=== PATIENT | female | born 1930 | race Caucasian/White ===

== ENCOUNTER 2018-02-06 10:48 | Day surgery (SDC) | payer MEDICARE ==
[~2018-02-06] VITALS: Ht 157.5 cm; Wt 63.5 kg
--- NOTE | ~2018-02-06 | OP ---
PATIENT NAME: GARY CABRERA MEDICAL RECORD: [id number] :32 LOCATION:D.END ADMISSION DATE: SURGEON: JIMY OKEEFE DO DATE OF OPERATION: 02/06/2018 PROCEDURE: EGD with biopsies. INDICATION FOR PROCEDURE: Anemia, dysphagia, heartburn. SCOPE: Olympus video gastroscope. MEDICATIONS: Propofol 40 mg IV per anesthesia. ESTIMATED BLOOD LOSS: Minimal. COMPLICATIONS: None. FINDINGS: Informed consent was given. The patient was made comfortable with the above medication. After reaching an adequate level of sedation by slow IV push, the patient was placed on her left side. The endoscope was advanced under direct visualization through the mouth to the second portion of the duodenum without ease. The upper, middle, and lower thirds of the esophagus appeared normal without strictures or other lesions. At the GE junction, there was evidence of moderate LA class C reflux-induced esophagitis and possible Montes's mucosa. A cold forceps biopsy was taken to confirm or disprove this. There was a single esophageal ulcer located within the esophagitis. It was superficial and not bleeding. The endoscope was advanced beyond the GE junction into the stomach and retroflexed to view the cardia, where a small- to medium-size sliding hiatal hernia was present. In the stomach, there were multiple small, superficial gastric ulcers without bleeding stigmata. There was also diffuse appearance of atrophic gastritis. Random biopsies were taken with cold forceps to submit for histopathology. The endoscope was advanced beyond the pylorus into the duodenum. The entire examined duodenum appeared normal. The endoscope was then withdrawn from the patient. The patient tolerated the procedure well and there were no complications. IMPRESSION: 1. 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 Biopsies were taken. 2. A single esophageal ulcer without bleeding stigmata located at the GE junction. 3. Small- to medium-size sliding hiatal hernia. 4. Multiple superficial gastric ulcers without bleeding stigmata. 5. Atrophic gastritis by appearance. Biopsies pending. PLAN AND RECOMMENDATIONS: 1. Discharge home when recovery parameters are met. 2. Followup biopsy specimen results. 3. Continue current medications. 4. Protonix 40 mg daily times 60 days or equivalent PPI therapy. 5. Hold off on colonoscopy at this point. I feel that a colonoscopy is risky regarding her age and sedation if not necessary. I have reviewed her labs today and she is actually within the normal range on her hemoglobin. Her MCV is upper limits of normal, which would not be consistent with a chronic GI blood loss anemia. I will also order some iron studies and would like to see a Hemoccult OPERATIVE REPORT [id number] GARY CABRERA of her stool prior to proceeding with colonoscopy if necessary. 6. At this time, we will treat with PPI for 60 days and followup on labs and biopsies. TRANSINT:[id number] Voice Confirmation ID: [id number] DOCUMENT ID: [id number] JIMY OKEEFE DO at 1524 CC: [id number] DICTATION DATE: 02/06/18 1322 FIRE SUPPRESSION CAPTAIN: 02/06/18 1414 [facility] 02/06/18 [id number] [place] [address]
[2018-02-06] MEDS ORDERED: COREG6.25 MG (12:01)
[2018-02-06] MEDS ORDERED: FUROSEMIDE20 MG PO (12:02)
[2018-02-06] MEDS ORDERED: LOTENSIN20 MG PO (12:02)
[2018-02-06] MEDS ORDERED: NORVASC10 MG PO (12:03)
[2018-02-06] MEDS ORDERED: LIPITOR10 MG PO (12:04)
[2018-02-06] MEDS ORDERED: KEPPRA500 MG PO (12:04)
[2018-02-06] MEDS ORDERED: PRESERVISION AR1 CAP PO (12:05)
[2018-02-06] MEDS ORDERED: ASPIRIN81 MG PO (12:06)
[2018-02-06 12:07] LABS: BASOPHILS 0.5 % (0-2); EOSINOPHILS 1.3 % (0-7); HEMATOCRIT 38.8 % (36.0-48.0); HEMOGLOBIN 12.8 g/dL (12-16); IMMATURE GRANULOCYTES 0.5 % (0-5); LYMPHOCYTES 17.4 % (15-50); MCH 31.9 pg (26.0-34.0); MCV 96.8 fL (80.0-100.0); MEAN PLATELET VOLUME 10.9 fL (7.4-10.4); MONOCYTES 9.8 % (2-11); NEUTROPHILS 70.5 % (40-80); PLATELET COUNT 265 10x3/uL (130-400); RBC 4.01 10x6/uL (4.00-5.40); RDW 13.4 % (11.5-14.5); WBC 8.6 10x3/uL (4.8-10.8)
[2018-02-06 12:28] VITALS: BP 153/70; Ht 157.5 cm; Wt 63.5 kg
[2018-02-06 12:28] LABS: CALCIUM 9.2 mg/dL (8.5-10.1); CARBON DIOXIDE 30.7 mmol/L (21.0-32.0); CREATININE - SERUM 0.9 mg/dL (0.6-1.3); POTASSIUM - SERUM 3.7 mmol/L (3.5-5.1)
[2018-02-06 14:24] LABS: % SATURATION 26 % (15-55); IRON 80 ug/dl (35-150); TOTAL IRON BIND CAPACITY 305 ug/dl (260-445); UNSAT IRON BIND CAPACITY 225 ug/dl (150-375)
[2018-02-06 14:37] LABS: FERRITIN 60 ng/mL (3-244); LDH 266 U/L (81-234)
== END 2018-02-06 14:30 | disposition home or self-care (01) ==
LOC: D.ENDO 10:48
PROVIDERS: Anesthesiology; Internal Medicine Gastroenterology
DX: K22.10 Ulcer of esophagus without bleeding (principal); K44.9 Diaphragmatic hernia without obstruction or gangrene; K25.9 Gastric ulcer, unspecified as acute or chronic, without hemorrhage or perforation; K21.0 Gastro-esophageal reflux disease with esophagitis; R13.10 Dysphagia, unspecified; I10 Essential (primary) hypertension; Z01.812 Encounter for preprocedural laboratory examination

== ENCOUNTER → 2018-02-08 12:45 | Outpatient (CLI) | payer MEDICARE ==
[2018-02-06 12:28] VITALS: BMI 25.6
[~2018-02-08 12:45] MED LIST: ASPIRIN81 MG PO; COREG6.25 MG; FUROSEMIDE20 MG PO; KEPPRA500 MG PO; LIPITOR10 MG PO; LOTENSIN20 MG PO; NORVASC10 MG PO; PRESERVISION AR1 CAP PO
== END | disposition home or self-care (01) ==
LOC: D.LAB 12:45
DX: D64.9 Anemia, unspecified (principal)

== ENCOUNTER 2018-12-21 19:59 | Inpatient (IN) | payer MEDICARE ==
[~2018-12-21] VITALS: Ht 157.5 cm; Wt 60.7 kg
[2018-12-21] MEDS ORDERED: TESSALON PERLE100 MG PO (20:06)
[2018-12-21] MEDS ORDERED: AUGMENTIN 875-11 TAB PO (20:06)
[2018-12-21 20:41] LABS: BASOPHILS 0.2 % (0-2); HEMATOCRIT 38.8 % (36.0-48.0); HEMOGLOBIN 12.9 g/dL (12-16); IMMATURE GRANULOCYTES 0.2 % (0-5); LYMPHOCYTES 9.9 % (15-50); MCH 31.5 pg (26.0-34.0); MCHC 33.2 g/dL (31.0-37.0); MCV 94.9 fL (80.0-100.0); MONOCYTES 9.2 % (2-11); NEUTROPHILS 78.5 % (40-80); PLATELET COUNT 241 10x3/uL (130-400); RBC 4.09 10x6/uL (4.00-5.40); WBC 12.9 10x3/uL (4.8-10.8)
[2018-12-21 20:47] LABS: APTT 27.9 SECONDS (22.8-39.4); INR 1.13 (0.85-1.17)
[2018-12-21 20:54] LABS: ALBUMIN 3.7 g/dL (3.4-5.0); ALKALINE PHOSPHATASE 144 U/L (46-116); ALT (SGPT) 21 U/L (10-68); BILIRUBIN - TOTAL 0.79 mg/dL (0.2-1.3); CALC OSMOLALITY 280 mosm/kg (275-300); CALCIUM 9.4 mg/dL (8.5-10.1); CARBON DIOXIDE 31.4 mmol/L (21.0-32.0); CHLORIDE - SERUM 98 mmol/L (98-107); GLUCOSE 122 mg/dL (74-106); POTASSIUM - SERUM 3.6 mmol/L (3.5-5.1); PROTEIN - SERUM 7.8 g/dL (6.4-8.2); SODIUM 138 mmol/L (136-145); UREA NITROGEN 24 mg/dL (7-18); eGFR NON AFRICAN AMERICAN 56 mL/min (90-120)
[2018-12-21 21:05] LABS: CREATINE KINASE 69 UL (21-215)
[2018-12-21 21:07] LABS: TROPONIN-I < 0.017 ng/mL (0.000-0.060)
[2018-12-21 23:31] VITALS: BP 159/67; BMI 24.5
[2018-12-22 04:00] VITALS: BP 151/65
[2018-12-22 08:06] VITALS: BP 143/68
[2018-12-22 13:06] VITALS: BP 134/74
[2018-12-22 16:13] LABS: APPEARANCE CLEAR (CLEAR); BILIRUBIN NEGATIVE (NEGATIVE); COLOR YELLOW (YELLOW); GLUCOSE NEGATIVE (NEGATIVE); KETONE NEGATIVE (NEGATIVE); NITRITE NEGATIVE (NEGATIVE); PROTEIN NEGATIVE (NEGATIVE); UROBILINOGEN NORMAL (NORMAL)
[2018-12-22 16:17] LABS: BACTERIA FEW /hpf (NONE SEEN); EPITHELIAL CELLS 0-5 /hpf (0-5); RED CELLS - URINE 0-5 /hpf (0-5); WHITE CELLS - URINE 0-5 /hpf (0-5)
[2018-12-22 17:55] VITALS: BP 144/64
[2018-12-22 20:24] VITALS: BP 143/64
[2018-12-23 01:24] VITALS: BP 129/62
[2018-12-23 05:02] VITALS: BP 148/69
[2018-12-23 06:19] LABS: CALCIUM 8.4 mg/dL (8.5-10.1); CARBON DIOXIDE 30.4 mmol/L (21.0-32.0); CHLORIDE - SERUM 108 mmol/L (98-107); GLUCOSE 95 mg/dL (74-106); POTASSIUM - SERUM 3.2 mmol/L (3.5-5.1); SODIUM 145 mmol/L (136-145)
[2018-12-23 06:20] LABS: CALC OSMOLALITY 287 mosm/kg (275-300); CREATININE - SERUM 0.6 mg/dL (0.6-1.3); UREA NITROGEN 11 mg/dL (7-18); eGFR NON AFRICAN AMERICAN > 90 mL/min (90-120)
[2018-12-23 06:26] LABS: BASOPHILS 0.1 % (0-2); EOSINOPHILS 3.1 % (0-7); HEMATOCRIT 33.9 % (36.0-48.0); HEMOGLOBIN 10.8 g/dL (12-16); IMMATURE GRANULOCYTES 0.1 % (0-5); LYMPHOCYTES 19.8 % (15-50); MCHC 31.9 g/dL (31.0-37.0); MEAN PLATELET VOLUME 11.4 fL (7.4-10.4); MONOCYTES 13.4 % (2-11); NEUTROPHILS 63.5 % (40-80); RBC 3.48 10x6/uL (4.00-5.40); RDW 14.5 % (11.5-14.5)
[2018-12-23 06:41] LABS: MCV 97.4 fL (80.0-100.0); PLATELET COUNT 192 10x3/uL (130-400); WBC 7.3 10x3/uL (4.8-10.8)
[2018-12-23 07:03] VITALS: BP 156/67
[2018-12-23 10:50] VITALS: Ht 157.5 cm; Wt 60.7 kg
[2018-12-23 12:53] VITALS: BP 148/70
[2018-12-23 17:47] VITALS: BP 143/72
[2018-12-23 21:03] VITALS: BP 147/69
[2018-12-24 01:03] VITALS: BP 134/63
[2018-12-24 05:36] LABS: BASOPHILS 0.2 % (0-2); EOSINOPHILS 3.8 % (0-7); HEMATOCRIT 32.7 % (36.0-48.0); HEMOGLOBIN 10.2 g/dL (12-16); IMMATURE GRANULOCYTES 0.3 % (0-5); LYMPHOCYTES 25.5 % (15-50); MCH 30.5 pg (26.0-34.0); MCHC 31.2 g/dL (31.0-37.0); MCV 97.9 fL (80.0-100.0); MEAN PLATELET VOLUME 10.9 fL (7.4-10.4); MONOCYTES 13.6 % (2-11); NEUTROPHILS 56.6 % (40-80); PLATELET COUNT 201 10x3/uL (130-400); RBC 3.34 10x6/uL (4.00-5.40); RDW 14.4 % (11.5-14.5); WBC 6.6 10x3/uL (4.8-10.8)
[2018-12-24 05:52] LABS: ANION GAP 9.4 mmol/L (8-16); CALCIUM 8.1 mg/dL (8.5-10.1); CARBON DIOXIDE 30.3 mmol/L (21.0-32.0); POTASSIUM - SERUM 3.7 mmol/L (3.5-5.1)
[2018-12-24 06:13] LABS: CREATININE - SERUM 0.9 mg/dL (0.6-1.3)
[2018-12-24 06:21] VITALS: BP 156/67
[2018-12-24 09:06] VITALS: BP 144/77
[2018-12-24 13:06] VITALS: BP 157/68
--- NOTE | 2018-12-24 14:49 | MORECARE ---
CASE MANAGEMENT DISCHARGE SUMMARY PATIENT: GARY CABRERA UNIT: [id number] ADM DATE: 12/21/18 AGE: 88 : 31 SEX: F ROOM/BED: D.2104 AUTHOR: JUDY WEEKS PHYSICIAN: REFERRING PHYSICIAN: HAYDEE PONCE MD DATE OF SERVICE: 12/24/18 Discharge Plan Patient Name: GARY CABRERA Facility: [facility]:[place] : 1930 Planned Disposition: Half-Way Facility Anticipated Discharge Date: 12/24/18 Discharge Date: Expected LOS: 3 Initial Reviewer: [id number] Initial Review Date: 12/24/2018 Generated: 12/24/18 3:48 pm External Providers External Provider: [facility] Next Contact Date: 12/25/2018 Service Request Date: Service Type: Resolution: Reviewer: Comments: Coverage Notice Reviewer: [id number] Mancilla Notice Issued Date-Time: 12/24/2018 10:15 Notice Type: IM Discharge Notice Notice Delivered To: Family Member Relationship to Patient: Spouse Property Investor Name: BERHANE CABRERA Delivery Method: HAND - Hand Delivered Gina Days: Prior Verbal Notification: Recipient Understood Notice: Yes Recipient Signature: Yes Med Rec Note Co-signed by Attending: Coverage Notice Comment: Reviewer: AGATHA Mancilla Notice Issued Date-Time: 12/24/2018 10:15 Notice Type: IM Discharge Notice Notice Delivered To: Family Member Relationship to Patient: Spouse Property Investor Name: BERHANE CABRERA Delivery Method: HAND - Hand Delivered Gina Days: Prior Verbal Notification: Recipient Understood Notice: Yes Recipient Signature: Yes Med Rec Note Co-signed by Attending: Coverage Notice Comment: [facility] Patient Name: GARY CABRERA Page 40320 at 1449 All edits/amendments must be made on the electronic document DICTATION DATE: 12/24/181447 WIRE WRAPPING MACHINE OPERATOR: YOVANI 12/24/18 1448 RPT#: [id number] DC DATE: STATUS: ADM IN [facility] [address] [place] [address] END OF REPORT
--- NOTE | 2018-12-24 14:57 | MORECARE ---
CASE MANAGEMENT DISCHARGE SUMMARY PATIENT: GARY CABRERA UNIT: [id number] ADM DATE: 12/21/18 AGE: 88 : 31 SEX: F ROOM/BED: D.2104 AUTHOR: MICKY,DOC PHYSICIAN: REFERRING PHYSICIAN: HAYDEE PONCE MD DATE OF SERVICE: 12/24/18 Discharge Plan Patient Name: GARY CABRERA Facility: [facility]:[place] : 1930 Planned Disposition: Halfway Facility Anticipated Discharge Date: 12/24/18 Discharge Date: Expected LOS: 3 Initial Reviewer: [id number] Initial Review Date: 12/24/2018 Generated: 12/24/18 3:57 pm DCPIA - Discharge Planning Initial Assessment Updated by [email or web address]: Valerio Mancilla on 12/24/18 2:53 pm * Is the patient Alert and Oriented? Yes * How many steps to enter\exit or inside your home? RAMP * PCP DR. CABRERA IN [place] * Pharmacy [facility] OR [facility] MAIL ORDER * Preadmission Environment Home with Family * ADLs Partial Dependent * Partial ADLs (Assistance needed) Ambulation Bathing Medication Management Toileting * Equipment Rolling Walker Wheelchair * Other Equipment NO MEDICAL EQUIPMENT PROVIDER PREFERENCE * List name and contact numbers for known caregivers / representatives who currently or will assist patient after discharge: BERHANE CABRERA, SPOUSE, * Verbal permission to speak to the caregivers and representatives has been obtained from the patient. Yes * Community resources currently utilized None * Please name any agencies selected above. NONE * Additional services required to return to the preadmission environment? Yes * Can the patient safely return to the preadmission environment? Yes * Has this patient been hospitalized within the prior 30 days at any hospital? No External Providers External Provider: [facility] Next Contact Date: 12/24/2018 Service Request Date: Service Type: Resolution: Reviewer: Comments: Coverage Notice Reviewer: [id number] Marti Mancilla Notice Issued Date-Time: 12/24/2018 10:15 Notice Type: IM Discharge Notice Notice Delivered To: Family Member Relationship to Patient: Spouse Big Data Software Engineer Name: BERHANE CABRERA Delivery Method: HAND - Hand Delivered Gina Days: Prior Verbal Notification: Recipient Understood Notice: Yes Recipient Signature: Yes Med Rec Note Co-signed by Attending: Coverage Notice Comment: Reviewer: [id number] - Valerio Mancilla Notice Issued Date-Time: 12/24/2018 10:15 Notice Type: IM Discharge Notice Notice Delivered To: Family Member Relationship to Patient: Spouse Big Data Software Engineer Name: BERHANE CABRERA Delivery Method: HAND - Hand Delivered Gina Days: Prior Verbal Notification: Recipient Understood Notice: Yes Recipient Signature: Yes Med Rec Note Co-signed by Attending: Coverage Notice Comment: [facility] Last DP export: 12/24/18 1:49 p Patient Name: GARY CABRERA Page 21641 at 1457 All edits/amendments must be made on the electronic document DICTATION DATE: 12/24/181455 SAND SLINGER OPERATOR: YOVANI 12/24/181455 RPT#: [id number] DC DATE: STATUS: ADM IN [facility] [address] [place] [address] END OF REPORT
--- NOTE | 2018-12-24 15:14 | MORECARE ---
CASE MANAGEMENT DISCHARGE SUMMARY PATIENT: GARY CABRERA UNIT: [id number] ADM DATE: 12/21/18 AGE: 88 : 31 SEX: F ROOM/BED: D.2109 AUTHOR: MICKY,DOC PHYSICIAN: REFERRING PHYSICIAN: HAYDEE PONCE MD DATE OF SERVICE: 12/24/18 Discharge Plan Patient Name: GARY CABRERA Facility: [facility]:[place] : 1930 Planned Disposition: Halfway Facility Anticipated Discharge Date: 12/24/18 Discharge Date: Expected LOS: 3 Initial Reviewer: [id number] Initial Review Date: 12/24/2018 Generated: 12/24/18 4:14 pm Comments DCP- Discharge Planning Updated by [email or web address]: Valerio Mancilla on 12/24/18 2:[address] Patient Name: GARY CABRERA Admission Status: ER Accout number: [id number] Admission Date: 12-21-2018 : 1930 Admission Diagnosis:SHORTNESS OF BREATH Attending: HAYDEE PONCE Current LOS: 3 Anticipated DC Date: 12-24-2018 Planned Disposition: Halfway Facility Primary Insurance: MEDICARE A & B PLANNED EXTERNAL PROVIDER: [facility], MEDICARE REHAB BED Discharge Planning Comments: CM RECEIVED INPATIENT REHAB PRESCREEING ORDER, MET WITH PT AND SPOUSE IN ROOM TO DISCUSS DISCHARGE PLANNING AND NEEDS. GARY CABRERA provided verbal consent to discuss current and ongoing needs with/in the presence of: SPOUSE, BERHANE. PT LIVES AT HOME DEPENDENTLY WITH SPOUSE FOR MEDICATION MANAGEMENT, BATHING, TOILETING AND WALKING. PT HAS ROLLING WALKER ADN WHEELCHAIR WITH NO MEDICAL EQUIPMENT PROVIDER PREFERENCE. PT HAS NO OUTSIDE SERVICES ASSISTING IN THE HOME. CM DISCUSSED AVAILABILITY OF HOME HEALTH, REHAB SERVICES AND MEDICAL EQUIPMENT. PT HAS BEEN TO [facility] IN THE PAST AND WANTS TO GO THERE FOR REHAB TO GET STRONGER TO GO HOME. PT'S SPOUSE REPORTS HE IS EXHAUSTED FROM CARING FOR PT AND JUST NEEDS A BREAK HIMSELF. CHOICE LISTING PROVIDED, CHOICE SIGNED FOR [facility]. IMPORTANT MESSAGE FROM MEDICARE PROVIDED AND EXPLAINED. CM CALLED [facility] AT [facility], , WHO INFORMED CM THAT THEY WILL ACCEPT PT FOR REHAB ONCE MERT IS APPROVED. CM FAXED REFERRAL TO [facility] AT [phone]. CM COMPLETED MERT RECEIVED DOCTORS SIGNATURE. CM MET WITH PT WHO REPORTS SHE IS UNABLE TO SIGN DUE TO HAVING STOKE IN THE PAST THAT AFFECTED HER HANDS. CM FAXED MERT AND SUPPORTING CHART INFORMATION TO [facility] AT [phone]. CM WAITING MERT ASSESSMENT DETERMINATION FOR ADMISSION INTO LONG TERM FACILITY. [facility] WILL ACCEPT FOR REHAB ONCE PT HAS BEEN APPROVED BY MERT. [facility] DOES NOT DO WEEKEND ADMISSIONS OR ADMISSIONS TO REHAB AFTER 2PM ON WEEK. Caregiver Services Home: Valerio Mancilla DCPIA - Discharge Planning Initial Assessment Updated by [email or web address]: Valerio Mancilla on 12/24/18 2:53 pm * Is the patient Alert and Oriented? Yes * How many steps to enter\exit or inside your home? RAMP * PCP DR. CABRERA IN [place] * Pharmacy [facility] OR [facility] MAIL ORDER * Preadmission Environment Home with Family * ADLs Partial Dependent * Partial ADLs (Assistance needed) Ambulation Bathing Medication Management Toileting * Equipment Rolling Walker Wheelchair * Other Equipment NO MEDICAL EQUIPMENT PROVIDER PREFERENCE * List name and contact numbers for known caregivers / representatives who currently or will assist patient after discharge: BERHANE CABRERA, SPOUSE, * Verbal permission to speak to the caregivers and representatives has been obtained from the patient. Yes * Community resources currently utilized None * Please name any agencies selected above. NONE * Additional services required to return to the preadmission environment? Yes * Can the patient safely return to the preadmission environment? Yes * Has this patient been hospitalized within the prior 30 days at any hospital? No Coverage Notice Reviewer: [id number] Marti Mancilla Notice Issued Date-Time: 12/24/2018 10:15 Notice Type: IM Discharge Notice Notice Delivered To: Family Member Relationship to Patient: Spouse Sound Mixer Name: BERHANE CABRERA Delivery Method: HAND - Hand Delivered Gina Days: Prior Verbal Notification: Recipient Understood Notice: Yes Recipient Signature: Yes Med Rec Note Co-signed by Attending: Coverage Notice Comment: Reviewer: [id number] Marti Mancilla Notice Issued Date-Time: 12/24/2018 10:15 Notice Type: IM Discharge Notice Notice Delivered To: Family Member Relationship to Patient: Spouse Sound Mixer Name: BERHANE CABRERA Delivery Method: HAND - Hand Delivered Gina Days: Prior Verbal Notification: Recipient Understood Notice: Yes Recipient Signature: Yes Med Rec Note Co-signed by Attending: Coverage Notice Comment: [facility] Last DP export: 12/24/18 1:57 p Patient Name: GARY CABRERA Page [id number] at 1514 All edits/amendments must be made on the electronic document DICTATION DATE: 12/24/181513 BILINGUAL SECRETARY: YOVANI 12/24/181513 RPT#: [id number] DC DATE: STATUS: ADM IN [facility] [address] [place] [address] END OF REPORT
[2018-12-24 19:11] VITALS: BP 129/63
[2018-12-24 22:27] VITALS: BP 123/55
[2018-12-25 02:16] VITALS: BP 133/55
[2018-12-25 05:44] VITALS: BP 140/57
[2018-12-25 06:16] LABS: BASOPHILS 0.5 % (0-2); HEMATOCRIT 33.6 % (36.0-48.0); HEMOGLOBIN 10.6 g/dL (12-16); IMMATURE GRANULOCYTES 0.3 % (0-5); LYMPHOCYTES 33.2 % (15-50); MCH 30.5 pg (26.0-34.0); MCHC 31.5 g/dL (31.0-37.0); MCV 96.6 fL (80.0-100.0); MEAN PLATELET VOLUME 11.1 fL (7.4-10.4); MONOCYTES 12.2 % (2-11); NEUTROPHILS 47.8 % (40-80); PLATELET COUNT 203 10x3/uL (130-400); RBC 3.48 10x6/uL (4.00-5.40); RDW 14.2 % (11.5-14.5); WBC 5.8 10x3/uL (4.8-10.8)
[2018-12-25 06:22] LABS: CALC OSMOLALITY 288 mosm/kg (275-300); CALCIUM 8.6 mg/dL (8.5-10.1); CARBON DIOXIDE 33.4 mmol/L (21.0-32.0); CHLORIDE - SERUM 108 mmol/L (98-107); GLUCOSE 89 mg/dL (74-106); POTASSIUM - SERUM 3.2 mmol/L (3.5-5.1); SODIUM 145 mmol/L (136-145); UREA NITROGEN 15 mg/dL (7-18)
[2018-12-25 06:28] LABS: CREATININE - SERUM 0.5 mg/dL (0.6-1.3); eGFR NON AFRICAN AMERICAN > 90 mL/min (90-120)
[2018-12-25 08:41] VITALS: BP 143/70
--- NOTE | 2018-12-25 11:58 | MORECARE ---
CASE MANAGEMENT DISCHARGE SUMMARY PATIENT: GARY CABRERA UNIT: [id number] ADM DATE: 12/21/18 AGE: 88 : 31 SEX: F ROOM/BED: D.2104 AUTHOR: MICKY,DOC PHYSICIAN: REFERRING PHYSICIAN: HAYDEE PONCE MD DATE OF SERVICE: 12/25/18 Discharge Plan Patient Name: GARY CABRERA Facility: [facility]:[place] : 1930 Planned Disposition: Senior Living Facility Anticipated Discharge Date: 12/24/18 Discharge Date: Expected LOS: 3 Initial Reviewer: [email or web address] Initial Review Date: 12/24/2018 Generated: 12/25/18 12:58 pm Comments DCP- Discharge Planning Updated by [email or web address]: Valerio Mancilla on 12/25/18 10:[address] Patient Name: GARY CABRERA Encounter No: [id number] : 1930 Primary Insurance: MEDICARE A & B Anticipated DC Date: 12-24-2018 Planned Disposition: Senior Living Facility External Planned Provider: [facility], MEDICARE REHAB BED Discharge Planning Comments: CM RECEIVED MERT APPROVAL FOR ADMISSION TO [facility]. CM FAXED HOSPITAL UPDATE AND MERT APPROVAL TO [facility] AT [phone]. [facility] WILL ACCEPT FOR REHAB. [facility] DOES NOT DO WEEKEND ADMISSIONS OR ADMISSIONS TO REHAB AFTER 2PM ON WEEKDAYS. FOR DISCHARGE TO REHAB, FAX DISCHARGE INFORMATION TO [facility] AT [phone]; NURSE REPORT TO BE CALLED TO [facility] AT [phone]. [facility] TO ARRANGE VAN TRANSPORTATION. Facilities Planner: Valerio Mancilla DCP- Discharge Planning Updated by [id number]: Valerio Mancilla on 12/24/18 2:[address] Patient Name: GARY CABRERA Admission Status: ER Accout number: [id number] Admission Date: 12-21-2018 : 1930 Admission Diagnosis:SHORTNESS OF BREATH Attending: HAYDEE PONCE Current LOS: 3 Anticipated DC Date: 12-24-2018 Planned Disposition: Senior Living Facility Primary Insurance: MEDICARE A & B PLANNED EXTERNAL PROVIDER: [facility], MEDICARE REHAB BED Discharge Planning Comments: CM RECEIVED INPATIENT REHAB PRESCREEING ORDER, MET WITH PT AND SPOUSE IN ROOM TO DISCUSS DISCHARGE PLANNING AND NEEDS. GARY CABRERA provided verbal consent to discuss current and ongoing needs with/in the presence of: SPOUSE, BERHANE. PT LIVES AT HOME DEPENDENTLY WITH SPOUSE FOR MEDICATION MANAGEMENT, BATHING, TOILETING AND WALKING. PT HAS ROLLING WALKER ADN WHEELCHAIR WITH NO MEDICAL EQUIPMENT PROVIDER PREFERENCE. PT HAS NO OUTSIDE SERVICES ASSISTING IN THE HOME. CM DISCUSSED AVAILABILITY OF HOME HEALTH, REHAB SERVICES AND MEDICAL EQUIPMENT. PT HAS BEEN TO [facility] IN THE PAST AND WANTS TO GO THERE FOR REHAB TO GET STRONGER TO GO HOME. PT'S SPOUSE REPORTS HE IS EXHAUSTED FROM CARING FOR PT AND JUST NEEDS A BREAK HIMSELF. CHOICE LISTING PROVIDED, CHOICE SIGNED FOR [facility]. IMPORTANT MESSAGE FROM MEDICARE PROVIDED AND EXPLAINED. CM CALLED [facility] AT [facility], , WHO INFORMED CM THAT THEY WILL ACCEPT PT FOR REHAB ONCE MERT IS APPROVED. CM FAXED REFERRAL TO [facility] AT [phone]. CM COMPLETED MERT RECEIVED DOCTORS SIGNATURE. CM MET WITH PT WHO REPORTS SHE IS UNABLE TO SIGN DUE TO HAVING STOKE IN THE PAST THAT AFFECTED HER HANDS. CM FAXED MERT AND SUPPORTING CHART INFORMATION TO [facility] AT [phone]. CM WAITING MERT ASSESSMENT DETERMINATION FOR ADMISSION INTO [facility]. [facility] WILL ACCEPT FOR REHAB ONCE PT HAS BEEN APPROVED BY MERT. [facility] DOES NOT DO WEEKEND ADMISSIONS OR ADMISSIONS TO REHAB AFTER 2PM ON WEEKDAYS. Facilities Planner: Valerio Mancilla DCPIA - Discharge Planning Initial Assessment Updated by [id number]: Valerio Mancilla on 12/24/18 2:53 pm * Is the patient Alert and Oriented? Yes * How many steps to enter\exit or inside your home? RAMP * PCP DR. CABRERA IN [place] * Pharmacy [facility] OR [facility] MAIL ORDER * Preadmission Environment Home with Family * ADLs Partial Dependent * Partial ADLs (Assistance needed) Ambulation Bathing Medication Management Toileting * Equipment Rolling Walker Wheelchair * Other Equipment NO MEDICAL EQUIPMENT PROVIDER PREFERENCE * List name and contact numbers for known caregivers / representatives who currently or will assist patient after discharge: BERHANE CABRERA, SPOUSE, * Verbal permission to speak to the caregivers and representatives has been obtained from the patient. Yes * Community resources currently utilized None * Please name any agencies selected above. NONE * Additional services required to return to the preadmission environment? Yes * Can the patient safely return to the preadmission environment? Yes * Has this patient been hospitalized within the prior 30 days at any hospital? No Coverage Notice Reviewer: [id number] Mancilla Notice Issued Date-Time: 12/24/2018 10:15 Notice Type: IM Discharge Notice Notice Delivered To: Family Member Relationship to Patient: Spouse Pricing Analyst Name: BERHANE CABRERA Delivery Method: HAND - Hand Delivered Gina Days: Prior Verbal Notification: Recipient Understood Notice: Yes Recipient Signature: Yes Med Rec Note Co-signed by Attending: Coverage Notice Comment: Reviewer: AGATHA Mancilla Notice Issued Date-Time: 12/24/2018 10:15 Notice Type: IM Discharge Notice Notice Delivered To: Family Member Relationship to Patient: Spouse Pricing Analyst Name: BERHANE CABRERA Delivery Method: HAND - Hand Delivered Gina Days: Prior Verbal Notification: Recipient Understood Notice: Yes Recipient Signature: Yes Med Rec Note Co-signed by Attending: Coverage Notice Comment: [facility] Last DP export: 12/24/18 2:14 p Patient Name: GARY CABRERA Page [id number] at 1158 All edits/amendments must be made on the electronic document DICTATION DATE: 12/25/18 1158 CONSTRUCTION MANAGEMENT ASSISTANT: YOVANI 12/25/18 1158 RPT#: [id number] DC DATE: STATUS: ADM IN [facility] [address] [place] [address] END OF REPORT
[2018-12-25 12:04] VITALS: BP 131/58
[2018-12-25 17:52] VITALS: BP 150/68
[2018-12-25 22:04] VITALS: BP 140/58
[2018-12-26 01:17] VITALS: BP 134/63
[2018-12-26 06:09] LABS: BASOPHILS 0.6 % (0-2); EOSINOPHILS 4.3 % (0-7); HEMOGLOBIN 10.3 g/dL (12-16); IMMATURE GRANULOCYTES 0.3 % (0-5); LYMPHOCYTES 31.8 % (15-50); MCH 30.8 pg (26.0-34.0); MCHC 32.2 g/dL (31.0-37.0); MCV 95.8 fL (80.0-100.0); MEAN PLATELET VOLUME 11.5 fL (7.4-10.4); MONOCYTES 11.2 % (2-11); NEUTROPHILS 51.8 % (40-80); PLATELET COUNT 219 10x3/uL (130-400); RBC 3.34 10x6/uL (4.00-5.40); WBC 6.8 10x3/uL (4.8-10.8)
[2018-12-26 06:15] VITALS: BP 132/74
[2018-12-26 06:28] LABS: CALC OSMOLALITY 291 mosm/kg (275-300); CALCIUM 8.5 mg/dL (8.5-10.1); CARBON DIOXIDE 32.7 mmol/L (21.0-32.0); CHLORIDE - SERUM 107 mmol/L (98-107); GLUCOSE 76 mg/dL (74-106); POTASSIUM - SERUM 3.4 mmol/L (3.5-5.1); SODIUM 146 mmol/L (136-145); UREA NITROGEN 18 mg/dL (7-18); eGFR NON AFRICAN AMERICAN 84 mL/min (90-120)
[2018-12-26 06:30] LABS: CREATININE - SERUM 0.7 mg/dL (0.6-1.3)
[2018-12-26 08:33] VITALS: BP 140/69
--- NOTE | 2018-12-26 09:29 | MORECARE ---
CASE MANAGEMENT DISCHARGE SUMMARY PATIENT: GARY CABRERA UNIT: [id number] ADM DATE: 12/21/18 AGE: 88 : 31 SEX: F ROOM/BED: D.2104 AUTHOR: MICKY,DOC PHYSICIAN: REFERRING PHYSICIAN: HAYDEE PONCE MD DATE OF SERVICE: 12/26/18 Discharge Plan Patient Name: GARY CABRERA Facility: [facility]:[place] : 1930 Planned Disposition: [facility] Facility Anticipated Discharge Date: 12/24/18 Discharge Date: Expected LOS: 3 Initial Reviewer: [id number] Initial Review Date: 12/24/2018 Generated: 12/26/18 10:29 am Comments DCP- Discharge Planning Updated by [id number]: Valerio Mancilla on 12/25/18 10:[address] Patient Name: GARY CABRERA Encounter No: [id number] : 1930 Primary Insurance: MEDICARE A & B Anticipated DC Date: 12-24-2018 Planned Disposition: [facility] Facility External Planned Provider: [facility], MEDICARE REHAB BED Discharge Planning Comments: CM RECEIVED [facility] APPROVAL FOR ADMISSION TO [facility]. CM FAXED HOSPITAL UPDATE AND MERT APPROVAL TO [facility] AT [phone]. [facility] WILL ACCEPT FOR REHAB. [facility] DOES NOT DO WEEKEND ADMISSIONS OR ADMISSIONS TO REHAB AFTER 2PM ON WEEKDAYS. FOR DISCHARGE TO REHAB, FAX DISCHARGE INFORMATION TO [facility] AT [phone]; NURSE REPORT TO BE CALLED TO [facility] AT [phone]. [facility] TO ARRANGE VAN TRANSPORTATION. Welder/Fabricator: Valerio Mancilla DCP- Discharge Planning Updated by [id number]: Valerio Mancilla on 12/24/18 2:[address] Patient Name: GARY CABRERA Admission Status: ER Accout number: [id number] Admission Date: 12-21-2018 : 1930 Admission Diagnosis:SHORTNESS OF BREATH Attending: HAYDEE PONCE Current LOS: 3 Anticipated DC Date: 12-24-2018 Planned Disposition: [facility] Facility Primary Insurance: MEDICARE A & B PLANNED EXTERNAL PROVIDER: [facility], MEDICARE REHAB BED Discharge Planning Comments: CM RECEIVED INPATIENT REHAB PRESCREEING ORDER, MET WITH PT AND SPOUSE IN ROOM TO DISCUSS DISCHARGE PLANNING AND NEEDS. GARY CABRERA provided verbal consent to discuss current and ongoing needs with/in the presence of: SPOUSE, BERHANE. PT LIVES AT HOME DEPENDENTLY WITH SPOUSE FOR MEDICATION MANAGEMENT, BATHING, TOILETING AND WALKING. PT HAS ROLLING WALKER ADN WHEELCHAIR WITH NO MEDICAL EQUIPMENT PROVIDER PREFERENCE. PT HAS NO OUTSIDE SERVICES ASSISTING IN THE HOME. CM DISCUSSED AVAILABILITY OF HOME HEALTH, REHAB SERVICES AND MEDICAL EQUIPMENT. PT HAS BEEN TO [facility] IN THE PAST AND WANTS TO GO THERE FOR REHAB TO GET STRONGER TO GO HOME. PT'S SPOUSE REPORTS HE IS EXHAUSTED FROM CARING FOR PT AND JUST NEEDS A BREAK HIMSELF. CHOICE LISTING PROVIDED, CHOICE SIGNED FOR [facility]. IMPORTANT MESSAGE FROM MEDICARE PROVIDED AND EXPLAINED. CM CALLED DHRUV AT [facility], , WHO INFORMED CM THAT THEY WILL ACCEPT PT FOR REHAB ONCE MERT IS APPROVED. CM FAXED REFERRAL TO [facility] AT [phone]. CM COMPLETED MERT RECEIVED DOCTORS SIGNATURE. CM MET WITH PT WHO REPORTS SHE IS UNABLE TO SIGN DUE TO HAVING STOKE IN THE PAST THAT AFFECTED HER HANDS. CM FAXED MERT AND SUPPORTING CHART INFORMATION TO [facility] AT [phone]. CM WAITING MERT ASSESSMENT DETERMINATION FOR ADMISSION INTO [facility]. [facility] WILL ACCEPT FOR REHAB ONCE PT HAS BEEN APPROVED BY MERT. [facility] DOES NOT DO WEEKEND ADMISSIONS OR ADMISSIONS TO REHAB AFTER 2PM ON WEEKDAYS. Welder/Fabricator: Valerio Mancilla DCPIA - Discharge Planning Initial Assessment Updated by [id number]: Valerio Mancilla on 12/24/18 2:53 pm * Is the patient Alert and Oriented? Yes * How many steps to enter\exit or inside your home? RAMP * PCP DR. CABRERA IN [place] * Pharmacy [facility] OR [facility] MAIL ORDER * Preadmission Environment Home with Family * ADLs Partial Dependent * Partial ADLs (Assistance needed) Ambulation Bathing Medication Management Toileting * Equipment Rolling Walker Wheelchair * Other Equipment NO MEDICAL EQUIPMENT PROVIDER PREFERENCE * List name and contact numbers for known caregivers / representatives who currently or will assist patient after discharge: BERHANE CABRERA, SPOUSE, * Verbal permission to speak to the caregivers and representatives has been obtained from the patient. Yes * Community resources currently utilized None * Please name any agencies selected above. NONE * Additional services required to return to the preadmission environment? Yes * Can the patient safely return to the preadmission environment? Yes * Has this patient been hospitalized within the prior 30 days at any hospital? No Coverage Notice Reviewer: [id number] Mancilla Notice Issued Date-Time: 12/24/2018 10:15 Notice Type: IM Discharge Notice Notice Delivered To: Family Member Relationship to Patient: Spouse Emergency Room Technician Name: BERHANE CABRERA Delivery Method: HAND - Hand Delivered Gina Days: Prior Verbal Notification: Recipient Understood Notice: Yes Recipient Signature: Yes Med Rec Note Co-signed by Attending: Coverage Notice Comment: Reviewer: [id number] Mancilla Notice Issued Date-Time: 12/24/2018 10:15 Notice Type: IM Discharge Notice Notice Delivered To: Family Member Relationship to Patient: Spouse Emergency Room Technician Name: BERHANE CABRERA Delivery Method: HAND - Hand Delivered Gina Days: Prior Verbal Notification: Recipient Understood Notice: Yes Recipient Signature: Yes Med Rec Note Co-signed by Attending: Coverage Notice Comment: [facility] Last DP export: 12/25/18 10:58 a Patient Name: GARY CABRERA Page 62785 at 0929 All edits/amendments must be made on the electronic document DICTATION DATE: 12/26/18928 UNION STEWARD: YOVANI 12/26/18928 RPT#: [id number] DC DATE: STATUS: ADM IN [facility] [address] [place] [address] END OF REPORT
[2018-12-26 11:47] VITALS: BP 131/62
[2018-12-26] MEDS ORDERED: IPRAT-ALBUT 0.5-3 ML UPD (12:37)
[2018-12-26] MEDS ORDERED: FLORAJEN3 CAPS460 MG PO (12:38)
[2018-12-26] MEDS ORDERED: OMNICEF300 MG PO (12:40)
--- NOTE | 2018-12-26 13:37 | MORECARE ---
CASE MANAGEMENT DISCHARGE SUMMARY PATIENT: GARY CABRERA UNIT: [id number] ADM DATE: 12/21/18 AGE: 88 : 31 SEX: F ROOM/BED: D.2104 AUTHOR: MICKY,DOC PHYSICIAN: REFERRING PHYSICIAN: HAYDEE PONCE MD DATE OF SERVICE: 12/26/18 Discharge Plan Patient Name: AGRY CABRERA Facility: [facility]:[place] : 1930 Planned Disposition: Assisted Facility Anticipated Discharge Date: 12/26/18 Discharge Date: Expected LOS: 5 Initial Reviewer: [id number] Initial Review Date: 12/24/2018 Generated: 12/26/18 2:36 pm Comments DCP- Discharge Planning Updated by [id number]: Valerio Mancilla on 12/25/18 10:[address] Patient Name: GARY CABRERA Encounter No: [id number] : 1930 Primary Insurance: MEDICARE A & B Anticipated DC Date: 12-24-2018 Planned Disposition: Assisted Facility External Planned Provider: [facility], MEDICARE REHAB BED Discharge Planning Comments: CM RECEIVED [facility]ERT APPROVAL FOR ADMISSION TO [facility]. CM FAXED HOSPITAL UPDATE AND MERT APPROVAL TO [facility] AT [phone]. [facility] WILL ACCEPT FOR REHAB. [facility] DOES NOT DO WEEKEND ADMISSIONS OR ADMISSIONS TO REHAB AFTER 2PM ON WEEKDAYS. FOR DISCHARGE TO REHAB, FAX DISCHARGE INFORMATION TO [facility] AT [phone]; NURSE REPORT TO BE CALLED TO [facility] AT [phone]. [facility] TO ARRANGE VAN TRANSPORTATION. Water [employer] Sew[employer] Superintendent: Valerio Mancilla DCP- Discharge Planning Updated by [id number]: Valerio Mancilla on 12/24/18 2:[address] Patient Name: GARY CABRERA Admission Status: ER Accout number: [id number] Admission Date: 12-21-2018 : 1930 Admission Diagnosis:SHORTNESS OF BREATH Attending: HAYDEE PONCE Current LOS: 3 Anticipated DC Date: 12-24-2018 Planned Disposition: Assisted Facility Primary Insurance: MEDICARE A & B PLANNED EXTERNAL PROVIDER: [facility], MEDICARE REHAB BED Discharge Planning Comments: CM RECEIVED INPATIENT REHAB PRESCREEING ORDER, MET WITH PT AND SPOUSE IN ROOM TO DISCUSS DISCHARGE PLANNING AND NEEDS. GARY CABRERA provided verbal consent to discuss current and ongoing needs with/in the presence of: SPOUSE, BERHANE. PT LIVES AT HOME DEPENDENTLY WITH SPOUSE FOR MEDICATION MANAGEMENT, BATHING, TOILETING AND WALKING. PT HAS ROLLING WALKER ADN WHEELCHAIR WITH NO MEDICAL EQUIPMENT PROVIDER PREFERENCE. PT HAS NO OUTSIDE SERVICES ASSISTING IN THE HOME. CM DISCUSSED AVAILABILITY OF HOME HEALTH, REHAB SERVICES AND MEDICAL EQUIPMENT. PT HAS BEEN TO [facility] IN THE PAST AND WANTS TO GO THERE FOR REHAB TO GET STRONGER TO GO HOME. PT'S SPOUSE REPORTS HE IS EXHAUSTED FROM CARING FOR PT AND JUST NEEDS A BREAK HIMSELF. CHOICE LISTING PROVIDED, CHOICE SIGNED FOR [facility]. IMPORTANT MESSAGE FROM MEDICARE PROVIDED AND EXPLAINED. CM CALLED DHRUV AT [facility], , WHO INFORMED CM THAT THEY WILL ACCEPT PT FOR REHAB ONCE MERT IS APPROVED. CM FAXED REFERRAL TO [facility] AT [phone]. CM COMPLETED MERT RECEIVED DOCTORS SIGNATURE. CM MET WITH PT WHO REPORTS SHE IS UNABLE TO SIGN DUE TO HAVING STOKE IN THE PAST THAT AFFECTED HER HANDS. CM FAXED MERT AND SUPPORTING CHART INFORMATION TO [facility] AT [phone]. CM WAITING MERT ASSESSMENT DETERMINATION FOR ADMISSION INTO [facility]. [facility] WILL ACCEPT FOR REHAB ONCE PT HAS BEEN APPROVED BY MERT. [facility] DOES NOT DO WEEKEND ADMISSIONS OR ADMISSIONS TO REHAB AFTER 2PM ON WEEKDAYS. Water And Sewer [employer] Superintendent: Valerio Mancilla DCPIA - Discharge Planning Initial Assessment Updated by [id number]: Valerio Mancilla on 12/24/18 2:53 pm * Is the patient Alert and Oriented? Yes * How many steps to enter\exit or inside your home? RAMP * PCP DR. CABRERA IN [place] * Pharmacy [facility] OR [facility] MAIL ORDER * Preadmission Environment Home with Family * ADLs Partial Dependent * Partial ADLs (Assistance needed) Ambulation Bathing Medication Management Toileting * Equipment Rolling Walker Wheelchair * Other Equipment NO MEDICAL EQUIPMENT PROVIDER PREFERENCE * List name and contact numbers for known caregivers / representatives who currently or will assist patient after discharge: BERHANE CABRERA, SPOUSE, * Verbal permission to speak to the caregivers and representatives has been obtained from the patient. Yes * Community resources currently utilized None * Please name any agencies selected above. NONE * Additional services required to return to the preadmission environment? Yes * Can the patient safely return to the preadmission environment? Yes * Has this patient been hospitalized within the prior 30 days at any hospital? No Coverage Notice Reviewer: [id number] Mancilla Notice Issued Date-Time: 12/24/2018 10:15 Notice Type: IM Discharge Notice Notice Delivered To: Family Member Relationship to Patient: Spouse Tail End Rider Name: BERHANE CABRERA Delivery Method: HAND - Hand Delivered Gina Days: Prior Verbal Notification: Recipient Understood Notice: Yes Recipient Signature: Yes Med Rec Note Co-signed by Attending: Coverage Notice Comment: Reviewer: [id number] Mancilla Notice Issued Date-Time: 12/24/2018 10:15 Notice Type: IM Discharge Notice Notice Delivered To: Family Member Relationship to Patient: Spouse Tail End Rider Name: BERHANE CABRERA Delivery Method: HAND - Hand Delivered Gina Days: Prior Verbal Notification: Recipient Understood Notice: Yes Recipient Signature: Yes Med Rec Note Co-signed by Attending: Coverage Notice Comment: [facility] Last DP export: 12/26/18 8:29 a Patient Name: GARY CABRERA Page 57795 at 1337 All edits/amendments must be made on the electronic document DICTATION DATE: 12/26/18 1336 CARBON SEQUESTRATION PLANT ENGINEER: YOVANI 12/26/18 1336 RPT#: [id number] DC DATE: STATUS: ADM IN [facility] [address] [place] [address] END OF REPORT
--- NOTE | 2018-12-26 13:49 | MORECARE ---
CASE MANAGEMENT DISCHARGE SUMMARY PATIENT: GARY CABRERA UNIT: [id number] ADM DATE: 12/21/18 AGE: 88 : 31 SEX: F ROOM/BED: D.2104 AUTHOR: MICKY,DOC PHYSICIAN: REFERRING PHYSICIAN: HAYDEE PONCE MD DATE OF SERVICE: 12/26/18 Discharge Plan Patient Name: GARY CABRERA Facility: [facility]:[place] : 1930 Planned Disposition: Shelter Facility Anticipated Discharge Date: 12/26/18 Discharge Date: Expected LOS: 5 Initial Reviewer: [id number] Initial Review Date: 12/24/2018 Generated: 12/26/18 2:49 pm Comments DCP- Discharge Planning Updated by [id number]: Valerio Mancilla on 12/26/18 12:[address] Patient Name: GARY CABRERA Encounter No: [id number] : 1930 Primary Insurance: MEDICARE A & B Anticipated DC Date: 12-26-2018 Planned Disposition: Shelter Facility External Planned Provider: [facility], MEDICARE REHAB BED DCP follow-up note: CM RECEIVED DISCHARGE ORDER, SPOKE TO PT AND SPOUSE IN ROOM, BOTH IN AGREEMENT WITH DISCHARGE TO REHAB TODAY. PT'S SPOUSE REPORTS THAT HE WILL DRIVE PT TO THE REHAB IF THE VAN IS NOT AVAILABLE. CM CALLED AND SPOKE TO DHRUV AT [facility], NO VAN AVAILABLE TODAY FOR GAME ARTIST. CM ADVISED PT ON ROOM AIR AND SPOUSE WILL TRANSPORT. [facility] ACCEPTED PT FOR TODAY AND ADVISED PT NEEDS TO LEAVE SOON POSSIBLE THEY DON'T NORMALLY ACCEPT ADMISSIONS LATE IN THE DAY. CM ADVISED THAT PT WILL BE DISCHARGED SOON POSSIBLE. CM FAXED DISCHARGE INFORMATION TO [facility] AT [phone]. [place] COORDINATOR AND BEDSIDE NURSE NOTIFIED. NURSE REPORT TO BE CALLED TO [facility] AT [phone]. PT'S SPOUSE TRANSPORTING TO REHAB TODAY. Press Helper: Valerio Mancilla DCP- Discharge Planning Updated by [email or web address]: Valerio Mancilla on 12/25/18 10:[address] Patient Name: GARY CABRERA Encounter No: [id number] : 1930 Primary Insurance: MEDICARE A & B Anticipated DC Date: 12-24-2018 Planned Disposition: Shelter Facility External Planned Provider: [facility], MEDICARE REHAB BED Discharge Planning Comments: CM RECEIVED [facility] APPROVAL FOR ADMISSION TO [facility]. CM FAXED HOSPITAL UPDATE AND MERT APPROVAL TO [facility] AT [phone]. [facility] WILL ACCEPT FOR REHAB. [facility] DOES NOT DO WEEKEND ADMISSIONS OR ADMISSIONS TO REHAB AFTER 2PM ON WEEKDAYS. FOR DISCHARGE TO REHAB, FAX DISCHARGE INFORMATION TO [facility] AT [phone]; NURSE REPORT TO BE CALLED TO [facility] AT [phone]. [facility] TO ARRANGE VAN TRANSPORTATION. Press Helper: Valerio Mancilla DCP- Discharge Planning Updated by [id number]: Valerio Mancilla on 12/24/18 2:[address] Patient Name: GARY CABRERA Admission Status: ER Accout number: [id number] Admission Date: 12-21-2018 : 1930 Admission Diagnosis:SHORTNESS OF BREATH Attending: HAYDEE PONCE Current LOS: 3 Anticipated DC Date: 12-24-2018 Planned Disposition: Shelter Facility Primary Insurance: MEDICARE A & B PLANNED EXTERNAL PROVIDER: [facility], MEDICARE REHAB BED Discharge Planning Comments: CM RECEIVED INPATIENT REHAB PRESCREEING ORDER, MET WITH PT AND SPOUSE IN ROOM TO DISCUSS DISCHARGE PLANNING AND NEEDS. GARY CABRERA provided verbal consent to discuss current and ongoing needs with/in the presence of: SPOUSE, BERHANE. PT LIVES AT HOME DEPENDENTLY WITH SPOUSE FOR MEDICATION MANAGEMENT, BATHING, TOILETING AND WALKING. PT HAS ROLLING WALKER ADN WHEELCHAIR WITH NO MEDICAL EQUIPMENT PROVIDER PREFERENCE. PT HAS NO OUTSIDE SERVICES ASSISTING IN THE HOME. CM DISCUSSED AVAILABILITY OF HOME HEALTH, REHAB SERVICES AND MEDICAL EQUIPMENT. PT HAS BEEN TO [facility] IN THE PAST AND WANTS TO GO THERE FOR REHAB TO GET STRONGER TO GO HOME. PT'S SPOUSE REPORTS HE IS EXHAUSTED FROM CARING FOR PT AND JUST NEEDS A BREAK HIMSELF. CHOICE LISTING PROVIDED, CHOICE SIGNED FOR [facility]. IMPORTANT MESSAGE FROM MEDICARE PROVIDED AND EXPLAINED. CM CALLED DHRUV AT [facility], , WHO INFORMED CM THAT THEY WILL ACCEPT PT FOR REHAB ONCE MERT IS APPROVED. CM FAXED REFERRAL TO [facility] AT [phone]. CM COMPLETED MERT RECEIVED DOCTORS SIGNATURE. CM MET WITH PT WHO REPORTS SHE IS UNABLE TO SIGN DUE TO HAVING STOKE IN THE PAST THAT AFFECTED HER HANDS. CM FAXED MERT AND SUPPORTING CHART INFORMATION TO [facility] AT [phone]. CM WAITING MERT ASSESSMENT DETERMINATION FOR ADMISSION INTO [facility]. [facility] WILL ACCEPT FOR REHAB ONCE PT HAS BEEN APPROVED BY [facility]ERT. [facility] DOES NOT DO WEEKEND ADMISSIONS OR ADMISSIONS TO REHAB AFTER 2PM ON WEEK. Press Helper: Valerio Mancilla DCPIA - Discharge Planning Initial Assessment Updated by [email or web address]: Valerio Mancilla on 12/24/18 2:53 pm * Is the patient Alert and Oriented? Yes * How many steps to enter\exit or inside your home? RAMP * PCP DR. CABRERA IN [place] * Pharmacy [facility] OR [facility] MAIL ORDER * Preadmission Environment Home with Family * ADLs Partial Dependent * Partial ADLs (Assistance needed) Ambulation Bathing Medication Management Toileting * Equipment Rolling Walker Wheelchair * Other Equipment NO MEDICAL EQUIPMENT PROVIDER PREFERENCE * List name and contact numbers for known caregivers / representatives who currently or will assist patient after discharge: BERHANE CABRERA, SPOUSE, * Verbal permission to speak to the caregivers and representatives has been obtained from the patient. Yes * Community resources currently utilized None * Please name any agencies selected above. NONE * Additional services required to return to the preadmission environment? Yes * Can the patient safely return to the preadmission environment? Yes * Has this patient been hospitalized within the prior 30 days at any hospital? No Coverage Notice Reviewer: AGATHA Mancilla Notice Issued Date-Time: 12/24/2018 10:15 Notice Type: IM Discharge Notice Notice Delivered To: Family Member Relationship to Patient: Spouse [employer] Gold Attendant Name: BERHANE CABRERA Delivery Method: HAND - Hand Delivered Gina Days: Prior Verbal Notification: Recipient Understood Notice: Yes Recipient Signature: Yes Med Rec Note Co-signed by Attending: Coverage Notice Comment: Reviewer: AGATHA Mancilla Notice Issued Date-Time: 12/24/2018 10:15 Notice Type: IM Discharge Notice Notice Delivered To: Family Member Relationship to Patient: Spouse [employer] Attendant Name: BERHANE CABRERA Delivery Method: HAND - Hand Delivered Gina Days: Prior Verbal Notification: Recipient Understood Notice: Yes Recipient Signature: Yes Med Rec Note Co-signed by Attending: Coverage Notice Comment: [facility] Last DP export: 12/26/18 12:37 p Patient Name: GARY CABRERA Page 54920 at 1349 All edits/amendments must be made on the electronic document DICTATION DATE: 12/26/18 1349 BARREL FILLER: YOVANI 12/26/18 1349 RPT#: [id number] DC DATE: STATUS: ADM IN [facility] [address] [place] [address] END OF REPORT
--- NOTE | 2018-12-27 08:38 | MORECARE ---
CASE MANAGEMENT DISCHARGE SUMMARY PATIENT: GARY CABRERA UNIT: [id number] ADM DATE: 12/21/18 AGE: 88 : 31 SEX: F ROOM/BED: D.2104 AUTHOR: MICKY,DOC PHYSICIAN: REFERRING PHYSICIAN: HAYDEE PONCE MD DATE OF SERVICE: 12/27/18 Discharge Plan Patient Name: GARY CABRERA Facility: [facility]:[place] : 1930 Planned Disposition: Jail Facility Anticipated Discharge Date: 12/26/18 Discharge Date: 12/26/2018 Expected LOS: 5 Initial Reviewer: [id number] Initial Review Date: 12/24/2018 Generated: 12/27/18 9:37 am Comments DCP- Discharge Planning Updated by [id number]: Valerio Mancilla on 12/26/18 12:[address] Patient Name: GARY CABRERA Encounter No: [id number] : 1930 Primary Insurance: MEDICARE A & B Anticipated DC Date: 12-26-2018 Planned Disposition: Jail Facility External Planned Provider: [facility], MEDICARE REHAB BED DCP follow-up note: CM RECEIVED DISCHARGE ORDER, SPOKE TO PT AND SPOUSE IN ROOM, BOTH IN AGREEMENT WITH DISCHARGE TO REHAB TODAY. PT'S SPOUSE REPORTS THAT HE WILL DRIVE PT TO THE REHAB IF THE VAN IS NOT AVAILABLE. CM CALLED AND SPOKE TO DHRUV AT [facility], NO VAN AVAILABLE TODAY FOR ARTIST MANAGER. CM ADVISED PT ON ROOM AIR AND SPOUSE WILL TRANSPORT. [facility] ACCEPTED PT FOR TODAY AND ADVISED PT NEEDS TO LEAVE SOON POSSIBLE THEY DON'T NORMALLY ACCEPT ADMISSIONS LATE IN THE DAY. CM ADVISED THAT PT WILL BE DISCHARGED SOON POSSIBLE. CM FAXED DISCHARGE INFORMATION TO [facility] AT [phone]. FLY RAIL OPERATOR AND BEDSIDE NURSE NOTIFIED. NURSE REPORT TO BE CALLED TO [facility] AT [phone]. PT'S SPOUSE TRANSPORTING TO REHAB TODAY. [place] Paver: Valerio Mancilla DCP- Discharge Planning Updated by [id number]: Valerio Mancilla on 12/25/18 10:[address] Patient Name: GARY CABRERA Encounter No: [id number] : 1930 Primary Insurance: MEDICARE A & B Anticipated DC Date: 12-24-2018 Planned Disposition: Jail Facility External Planned Provider: [facility], MEDICARE REHAB BED Discharge Planning Comments: CM RECEIVED MERT APPROVAL FOR ADMISSION TO [facility]. CM FAXED HOSPITAL UPDATE AND MERT APPROVAL TO [facility] AT [phone]. [facility] WILL ACCEPT FOR REHAB. [facility] DOES NOT DO WEEKEND ADMISSIONS OR ADMISSIONS TO REHAB AFTER 2PM ON WEEKDAYS. FOR DISCHARGE TO REHAB, FAX DISCHARGE INFORMATION TO [facility] AT [phone]; NURSE REPORT TO BE CALLED TO [facility] AT [phone]. [facility] TO ARRANGE VAN TRANSPORTATION. [place] Paver: Valerio Mancilla DCP- Discharge Planning Updated by [id number]: Valerio Mancilla on 12/24/18 2:[address] Patient Name: GARY CABRERA Admission Status: ER Accout number: [id number] Admission Date: 12-21-2018 : 1930 Admission Diagnosis:SHORTNESS OF BREATH Attending: HAYDEE PONCE Current LOS: 3 Anticipated DC Date: 12-24-2018 Planned Disposition: Jail Facility Primary Insurance: MEDICARE A & B PLANNED EXTERNAL PROVIDER: [facility], MEDICARE REHAB BED Discharge Planning Comments: CM RECEIVED INPATIENT REHAB PRESCREEING ORDER, MET WITH PT AND SPOUSE IN ROOM TO DISCUSS DISCHARGE PLANNING AND NEEDS. GARY CABRERA provided verbal consent to discuss current and ongoing needs with/in the presence of: SPOUSE, BERHANE. PT LIVES AT HOME DEPENDENTLY WITH SPOUSE FOR MEDICATION MANAGEMENT, BATHING, TOILETING AND WALKING. PT HAS ROLLING WALKER ADN WHEELCHAIR WITH NO MEDICAL EQUIPMENT PROVIDER PREFERENCE. PT HAS NO OUTSIDE SERVICES ASSISTING IN THE HOME. CM DISCUSSED AVAILABILITY OF HOME HEALTH, REHAB SERVICES AND MEDICAL EQUIPMENT. PT HAS BEEN TO [facility] IN THE PAST AND WANTS TO GO THERE FOR REHAB TO GET STRONGER TO GO HOME. PT'S SPOUSE REPORTS HE IS EXHAUSTED FROM CARING FOR PT AND JUST NEEDS A BREAK HIMSELF. CHOICE LISTING PROVIDED, CHOICE SIGNED FOR [facility]. IMPORTANT MESSAGE FROM MEDICARE PROVIDED AND EXPLAINED. CM CALLED DHRUV AT [facility], , WHO INFORMED CM THAT THEY WILL ACCEPT PT FOR REHAB ONCE MERT IS APPROVED. CM FAXED REFERRAL TO [facility] AT [phone]. CM COMPLETED MERT RECEIVED DOCTORS SIGNATURE. CM MET WITH PT WHO REPORTS SHE IS UNABLE TO SIGN DUE TO HAVING STOKE IN THE PAST THAT AFFECTED HER HANDS. CM FAXED MERT AND SUPPORTING CHART INFORMATION TO [facility] AT [phone]. CM WAITING MERT ASSESSMENT DETERMINATION FOR ADMISSION INTO [facility] FACILITY. [facility] WILL ACCEPT FOR REHAB ONCE PT HAS BEEN APPROVED BY [facility]. [facility] DOES NOT DO WEEKEND ADMISSIONS OR ADMISSIONS TO REHAB AFTER 2PM ON WEEK. [place] Paver: Valerio Mancilla DCPIA - Discharge Planning Initial Assessment Updated by [id number]: Valerio Mancilla on 12/24/18 2:53 pm * Is the patient Alert and Oriented? Yes * How many steps to enter\exit or inside your home? RAMP * PCP DR. CABRERA IN [place] * Pharmacy [facility] OR [facility] MAIL ORDER * Preadmission Environment Home with Family * ADLs Partial Dependent * Partial ADLs (Assistance needed) Ambulation Bathing Medication Management Toileting * Equipment Rolling Walker Wheelchair * Other Equipment NO MEDICAL EQUIPMENT PROVIDER PREFERENCE * List name and contact numbers for known caregivers / representatives who currently or will assist patient after discharge: BERHANE CABRERA, SPOUSE, * Verbal permission to speak to the caregivers and representatives has been obtained from the patient. Yes * Community resources currently utilized None * Please name any agencies selected above. NONE * Additional services required to return to the preadmission environment? Yes * Can the patient safely return to the preadmission environment? Yes * Has this patient been hospitalized within the prior 30 days at any hospital? No Coverage Notice Reviewer: [id number] - Valerio Mancilla Notice Issued Date-Time: 12/24/2018 10:15 Notice Type: IM Discharge Notice Notice Delivered To: Family Member Relationship to Patient: Spouse Pneumatic Jack Operator Name: BERHANE CABRERA Delivery Method: HAND - Hand Delivered Gina Days: Prior Verbal Notification: Recipient Understood Notice: Yes Recipient Signature: Yes Med Rec Note Co-signed by Attending: Coverage Notice Comment: Reviewer: [id number] - Valerio Mancilla Notice Issued Date-Time: 12/24/2018 10:15 Notice Type: IM Discharge Notice Notice Delivered To: Family Member Relationship to Patient: Spouse Pneumatic Jack Operator Name: BERHANE CABRERA Delivery Method: HAND - Hand Delivered Gina Days: Prior Verbal Notification: Recipient Understood Notice: Yes Recipient Signature: Yes Med Rec Note Co-signed by Attending: Coverage Notice Comment: [facility] Last DP export: 12/26/18 12:49 p Patient Name: GARY CABRERA Page [id number] at 0838 All edits/amendments must be made on the electronic document DICTATION DATE: 12/27/1837 OYSTER CULTIVATOR: YOVANI 12/27/1837 RPT#: [id number] DC DATE:12/26/18 STATUS: DIS IN [facility] [address] [place] [address] END OF REPORT
== END 2018-12-26 14:00 | DRG 194 ==
LOC: D.ER 19:59 → D.M2 21:53
PROVIDERS: Emergency Medicine; ADMIT Internal Medicine Nephrology
DX: J18.1 Lobar pneumonia, unspecified organism (principal); N17.9 Acute kidney failure, unspecified; I10 Essential (primary) hypertension; G40.909 Epilepsy, unspecified, not intractable, without status epilepticus; Z86.73 Personal history of transient ischemic attack (TIA), and cerebral infarction without residual deficits

== ENCOUNTER 2019-08-09 19:09 | Inpatient (IN) | payer MEDICARE ==
[~2019-08-09] VITALS: Ht 157.5 cm; Wt 60.5 kg
[~2019-08-09 19:09] MED LIST changes: +AUGMENTIN 875-11 TAB PO; +FLORAJEN3 CAPS460 MG PO; +IPRAT-ALBUT 0.5-3 ML UPD; +OMNICEF300 MG PO; +TESSALON PERLE100 MG PO
[2019-08-09 19:49] LABS: BASOPHILS 0.4 % (0-2); HEMATOCRIT 34.9 % (36.0-48.0); HEMOGLOBIN 10.9 g/dL (12-16); IMMATURE GRANULOCYTES 0.4 % (0-5); LYMPHOCYTES 15.1 % (15-50); MCH 30.2 pg (26.0-34.0); MCHC 31.2 g/dL (31.0-37.0); MCV 96.7 fL (80.0-100.0); MEAN PLATELET VOLUME 10.8 fL (7.4-10.4); MONOCYTES 16.8 % (2-11); NEUTROPHILS 64.3 % (40-80); PLATELET COUNT 272 10x3/uL (130-400); RBC 3.61 10x6/uL (4.00-5.40); RDW 14.1 % (11.5-14.5); WBC 9.1 10x3/uL (4.8-10.8)
[2019-08-09 20:13] LABS: ALBUMIN 2.5 g/dL (3.4-5.0); ALKALINE PHOSPHATASE 128 U/L (46-116); ALT (SGPT) 21 U/L (10-68); BILIRUBIN - TOTAL 0.34 mg/dL (0.2-1.3); CALC OSMOLALITY 279 mosm/kg (275-300); CALCIUM 8.7 mg/dL (8.5-10.1); CARBON DIOXIDE 34.3 mmol/L (21.0-32.0); CHLORIDE - SERUM 101 mmol/L (98-107); GLUCOSE 113 mg/dL (74-106); POTASSIUM - SERUM 4.5 mmol/L (3.5-5.1); PROTEIN - SERUM 7.3 g/dL (6.4-8.2); SODIUM 137 mmol/L (136-145); UREA NITROGEN 26 mg/dL (7-18); eGFR NON AFRICAN AMERICAN 55 mL/min (90-120)
[2019-08-09 20:28] LABS: CKMB 1.4 U/L (0.0-3.6); CREATINE KINASE 51 UL (21-215); PRO BNP 1066 pg/mL (0-450)
[2019-08-09 20:29] LABS: TROPONIN-I < 0.017 ng/mL (0.000-0.060)
[2019-08-09] MEDS ORDERED: SEROQUEL25 MG PO (22:08)
[2019-08-09] MEDS ORDERED: SENNA LAXATIVE8.6 MG PO (22:13)
[2019-08-09] MEDS ORDERED: MYLANTA / MAALO30 ML PO (22:15)
[2019-08-09] MEDS ORDERED: MILK OF MAGNESI30 ML PO (22:16)
[2019-08-09] MEDS ORDERED: CLARITIN 10 MG10 MG PO (22:16)
[2019-08-09] MEDS ORDERED: TYLENOL650 MG RC (22:18)
[2019-08-09] MEDS ORDERED: ACETAMINOPHEN500 M1 PO (22:18)
[2019-08-09] MEDS ORDERED: SCOT-TUSSI10 MG/5 ML PO (22:20)
[2019-08-09 22:21] VITALS: BP 124/51; Ht 157.5 cm; Wt 60.5 kg
--- NOTE | 2019-08-09 23:10 | NUR ---
RECIEVED REPORT FROM BRADEN NATARAJAN IN ER AT 2111. ARRIVED TO FLOOR AT 2134 ON STRETCHER. ABLE TO TRANSFER WITH ASSIST. 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 ALERT AND ORIENTED TO PERSON AND PLACE. O2 @ 2 LITERS PER N/C IN PLACE. RESP EVEN AND UNLABORED. LEFT LUNG SOUNDS RONCHI AND RIGHT LUNG SOUND CTA. IV TO RIGHT AC AZITHROMYCIN INFUSING. ASSISTED TO BED SIDE COMMODE WITH MAX ASSIST D/T POOR BALANCE AND WEAKNESS. DENIES ANY NEEDS AT THIS TIME. WILL CONT. POC.
[2019-08-10 00:52] VITALS: BP 120/53
[2019-08-10 04:51] VITALS: BP 114/43
[2019-08-10 06:13] LABS: BASOPHILS 0.3 % (0-2); EOSINOPHILS 4.6 % (0-7); HEMATOCRIT 33.2 % (36.0-48.0); HEMOGLOBIN 10.3 g/dL (12-16); IMMATURE GRANULOCYTES 0.6 % (0-5); LYMPHOCYTES 21.6 % (15-50); MCV 96.8 fL (80.0-100.0); MEAN PLATELET VOLUME 11.1 fL (7.4-10.4); MONOCYTES 16.6 % (2-11); NEUTROPHILS 56.3 % (40-80); PLATELET COUNT 279 10x3/uL (130-400); RBC 3.43 10x6/uL (4.00-5.40); RDW 14.1 % (11.5-14.5)
[2019-08-10 06:20] LABS: WBC 6.5 10x3/uL (4.8-10.8)
[2019-08-10 06:32] LABS: ALBUMIN 2.4 g/dL (3.4-5.0); ALKALINE PHOSPHATASE 119 U/L (46-116); ALT (SGPT) 22 U/L (10-68); BILIRUBIN - TOTAL 0.34 mg/dL (0.2-1.3); CALC OSMOLALITY 287 mosm/kg (275-300); CALCIUM 8.7 mg/dL (8.5-10.1); CARBON DIOXIDE 36.3 mmol/L (21.0-32.0); CHLORIDE - SERUM 106 mmol/L (98-107); CREATININE - SERUM 0.7 mg/dL (0.6-1.3); GLUCOSE 92 mg/dL (74-106); POTASSIUM - SERUM 4.4 mmol/L (3.5-5.1); PROTEIN - SERUM 6.8 g/dL (6.4-8.2); SODIUM 143 mmol/L (136-145); TROPONIN-I < 0.017 ng/mL (0.000-0.060); UREA NITROGEN 22 mg/dL (7-18); eGFR NON AFRICAN AMERICAN 84 mL/min (90-120)
[2019-08-10 08:19] VITALS: BP 121/61
--- NOTE | 2019-08-10 08:21 | NUR ---
PT RESTING IN BED. EATING JELLO. AAOX3. UNABLE TO STATE LOCATION REORIENTED WITGH SUCCESS. O2 @2 LITERS NC. NO S/S OF ACUTE DISTRESS. CL IN PLACE.
--- NOTE | 2019-08-10 10:12 | NUR ---
WALKED INTO PT ROOM. "I WANT TO TALK TO THE HEAD LADY" I ASKED THE PT WHAT WAS WRONG PT STATES, "I DO NOT WANT TO TAKE THOSE TREATMENTS, THEY CAUSE HEART ATTACKS." EXPLAINED TO PT SHE HAD THE RIGHT TO REFUSE. SPOKE WITH RT NICKO. NICKO AGREED TO HOLD PER PT REQUEST. EXPLAINED TO PT SHE HAD THE RIGHT TO REFUSE. PT AGREED.
[2019-08-10 11:42] VITALS: BP 105/56
[2019-08-10 12:50] LABS: INR 1.04 (0.85-1.17); PROTIME 13.1 SECONDS (11.6-15.0)
[2019-08-10 12:51] LABS: D-DIMER-QUANTITATIVE 1.83 ug/mLFEU (0.20-0.54)
[2019-08-10 16:04] VITALS: BP 140/65
--- NOTE | 2019-08-10 17:25 | NUR ---
educated pt about SCDS. PT REFUSED. NO S/S OF ACUTE DISTRESS. CL IN PLACE.
--- NOTE | 2019-08-10 18:29 | NUR ---
PT RESTING IN BED. ADJUSTED NC ON HER NOSE. NO S/S OF ACUTE DISTRESS. CL IN PLACE.
[2019-08-10 20:30] VITALS: BP 133/66
[2019-08-11 01:11] VITALS: BP 127/63
--- NOTE | 2019-08-11 05:14 | NUR ---
PATIENT REFUSED TO HAVE MORNING LABS DRAWN. TRIED TO TEACH PATIENT THAT SHE NEEDS TO HAVE HER LABS DRAWN SO SHE WILL GET BETTER AND SHE STILL REFUSED.
[2019-08-11 06:17] LABS: APPEARANCE CLEAR (CLEAR); BILIRUBIN NEGATIVE (NEGATIVE); COLOR STRAW (YELLOW); GLUCOSE NEGATIVE (NEGATIVE); KETONE NEGATIVE (NEGATIVE); NITRITE NEGATIVE (NEGATIVE); PROTEIN NEGATIVE (NEGATIVE); UROBILINOGEN NORMAL (NORMAL)
--- NOTE | 2019-08-11 06:23 | NUR ---
PATIENT REFUSED BREATHING TREATMENT.
--- NOTE | 2019-08-11 06:24 | NUR ---
PT REFUSED UPDRAFT TX
--- NOTE | 2019-08-11 07:10 | NUR ---
REPORT RECEIVED FROM FINANCIAL ANALYST INTERN AND PATIENT CARE ASSUMED. PATIENT LAYING IN BED ON BACK AWAKE AND ALERT. ORIENTED TO NAME , AND PLACE ONLY. ASSISTED PT TO BS COMMODE. PATIENT URINATED NO BM. CHANGED PATIENT INTO CLEAN [place]. ASSISTED WITH BREAKFAST RAY SETUP AND WARMED COFFEE. PATIENT REFUSES LAB DRAW AND BREATHING TMTS. PATIENT STATES THAT BREATHING TMTS TAKE YOUR OXYGEN AND MAKE YOU . SPENT SEVERAL MINUTES WITH PATIENT ATTEMPTING TO EDUCATE ON BENNFITS OF TMTS AND NEED TO FOR LAB . PATIENT CONTINUES TO REFUSE. PATIENT VSS. PATIENT DENIES ANY NEEDS OR PAIN. WILL CONTINUE WITH PLAN OF CARE. SR UP X 2 BED IN LOW POSITION AND CALL LIGHT IN REACH.
[2019-08-11] MEDS ORDERED: ZITHROMAX500 MG PO (08:30)
[2019-08-11] MEDS ORDERED: OMNICEF300 MG PO (08:31)
[2019-08-11] MEDS ORDERED: PROTONIX40 MG PO (08:32)
[2019-08-11 08:40] VITALS: BP 151/73
--- NOTE | 2019-08-11 09:37 | MORECARE ---
CASE MANAGEMENT DISCHARGE SUMMARY PATIENT: GARY CABRERA UNIT: [id number] ADM DATE: 08/09/19 AGE: 88 : 31 SEX: F ROOM/BED: D.1213 AUTHOR: JUDY WEEKS PHYSICIAN: REFERRING PHYSICIAN: CHANCE AL MD DATE OF SERVICE: 08/11/19 Discharge Plan Patient Name: GARY CABRERA [facility] [facility] 1930 Planned Disposition: Anticipated Discharge Date: Discharge Date: Expected LOS: Initial Reviewer: [email or web address] Initial Review Date: 08/11/2019 Generated: 08/11/19 10:37 am Patient Name: GARY CABRERA Page 15828 at 0937 All edits/amendments must be made on the electronic document DICTATION DATE: 08/11/19936 CLOTHING ROOM SUPERVISOR: YOVANI 08/11/1937 RPT#: [id number] DC DATE: STATUS: ADM IN [facility] [address] [place] [address] END OF REPORT
--- NOTE | 2019-08-11 09:46 | MORECARE ---
CASE MANAGEMENT DISCHARGE SUMMARY PATIENT: GARY CABRERA UNIT: [id number] ADM DATE: 08/09/19 AGE: 88 : 31 SEX: F ROOM/BED: D.1213 AUTHOR: JUDY WEEKS PHYSICIAN: REFERRING PHYSICIAN: CHANCE AL MD DATE OF SERVICE: 08/11/19 Discharge Plan Patient Name: GARY CABRERA Facility: [facility]:[place] : 1930 Planned Disposition: Anticipated Discharge Date: Discharge Date: Expected LOS: Initial Reviewer: [id number] Initial Review Date: 08/11/2019 Generated: 08/11/19 10:46 am Comments DCP- Discharge Planning Updated by [email or web address]: Kerrie Rosa on 08/11/19 8:[address] Patient Name: GARY CABRERA Admission Status: ER Accout number: [id number] Admission Date: 08-09-2019 : 1930 Admission Diagnosis: Attending: SERVANDO, Current LOS: 2 Anticipated DC Date: Planned Disposition: Primary Insurance: MEDICARE A & B Discharge Planning Comments: CM WENT TO MEET WITH PATIENT, SHE IS VERY CONFUSED. SHE IS TO DC TODAY BACK TO [facility], PHONE NUMBER [phone]. CM TO FOLLOW AND ASSIST. Marine Engineering Consultant: Kerrie Kaur DP export: 08/11/19 8:37 a Patient Name: GARY CABRERA Page [id number] at 0946 All edits/amendments must be made on the electronic document DICTATION DATE: 08/11/19944 PSYCH COORDINATOR: DM 08/11/19944 RPT#: [id number] DC DATE: STATUS: ADM IN [facility] [address] [place] [address] END OF REPORT
--- NOTE | 2019-08-11 09:53 | MORECARE ---
CASE MANAGEMENT DISCHARGE SUMMARY PATIENT: GARY CABRERA UNIT: [id number] ADM DATE: 08/09/19 AGE: 88 : 31 SEX: F ROOM/BED: D.1213 AUTHOR: JUDY WEEKS PHYSICIAN: REFERRING PHYSICIAN: CHANCE AL MD DATE OF SERVICE: 08/11/19 Discharge Plan Patient Name: GARY CABRERA Facility: [facility]:[place] : 1930 Planned Disposition: Nursing Facility [facility] Anticipated Discharge Date: 08/11/19 Discharge Date: Expected LOS: 2 Initial Reviewer: [id number] Initial Review Date: 08/11/2019 Generated: 08/11/19 10:52 am Comments DCP- Discharge Planning Updated by [email or web address]: Kerrie Rosa on 08/11/19 8:[address] Patient Name: GARY CABRERA Admission Status: ER Accout number: [id number] Admission Date: 08-09-2019 : 1930 Admission Diagnosis: Attending: SERVANDO, Current LOS: 2 Anticipated DC Date: Planned Disposition: Primary Insurance: MEDICARE A & B Discharge Planning Comments: CM WENT TO MEET WITH PATIENT, SHE IS VERY CONFUSED. SHE IS TO DC TODAY BACK TO [facility], PHONE NUMBER [phone]. CM TO FOLLOW AND ASSIST. Wastewater Analyst Lab Analyst: Kerrie Rosa Last DP export: 08/11/19 8:46 a Patient Name: GARY CABRERA Page [id number] at 0953 All edits/amendments must be made on the electronic document DICTATION DATE: 08/11/19951 CONFIGURATION MANAGEMENT SPECIALIST: YOVANI 08/11/19951 RPT#: [id number] DC DATE: STATUS: ADM IN [facility] [address] [place] [address] END OF REPORT
--- NOTE | 2019-08-11 10:24 | NUR ---
PATIENT IS NOT GIVEN FLU SHOT SHE IS GETTING OVER [place] AND GOING HOME ON ORAL ANTIBIOTICS.
--- NOTE | 2019-08-11 10:43 | NUR ---
PT REFUSED TX
--- NOTE | 2019-08-11 11:32 | NUR ---
PATIENT IS STABLE AND VSS. ORDERS RECIEVED FOR DC. WRITTEN AND VERBAL INSTUCTIONS GIVEN . PATIENT VERBALIZED UNDERSTANDING. PATIENT REQUESTED THIS NURSE SIGN HER PAPERWORK . [facility] ON [facility] BUT DOD NOT HAVE OXYGEN ON VAN. PER THAT IS HERE NOW T PICK HER UP, [place] CALLED HIM AND ASKED HIM TO COME STRIKE PLATE ATTACHER HER UP SINCE HE HAS AN O2 TANK. IV DCD W/O DIFFICULTY WITH ENTIRE CATHETER INTACT. BANDAGE APPLIED SECURLY. PATIENT UP TO COMMODE FOR URINATION. PATIENT TRANSFERRED TO AND TO PRIVATE VEHICLE DRIVEN BY . O2 TANK CHECKED AND FULL. O2 PER NC AT 2L/MIN.
--- NOTE | 2019-08-11 13:52 | MORECARE ---
CASE MANAGEMENT DISCHARGE SUMMARY PATIENT: GARY CABRERA UNIT: [id number] ADM DATE: 08/09/19 AGE: 88 : 31 SEX: F ROOM/BED: D.1213 AUTHOR: JUDY WEEKS PHYSICIAN: REFERRING PHYSICIAN: CHANCE AL MD DATE OF SERVICE: 08/11/19 Discharge Plan Patient Name: GARY CABRERA Facility: [facility]:[place] : 1930 Planned Disposition: Nursing Facility [facility] Anticipated Discharge Date: 08/11/19 Discharge Date: 08/11/2019 Expected LOS: 2 Initial Reviewer: [email or web address] Initial Review Date: 08/11/2019 Generated: 08/11/19 2:51 pm Comments DCP- Discharge Planning Updated by [email or web address]: Kerrie Rosa on 08/11/19 8:[address] Patient Name: GARY CABRERA Admission Status: ER Accout number: [id number] Admission Date: 08-09-2019 : 1930 Admission Diagnosis: Attending: SERVANDO, Current LOS: 2 Anticipated DC Date: Planned Disposition: Primary Insurance: MEDICARE A & B Discharge Planning Comments: CM WENT TO MEET WITH PATIENT, SHE IS VERY CONFUSED. SHE IS TO DC TODAY BACK TO [facility], PHONE NUMBER [phone]. CM TO FOLLOW AND ASSIST. Veneer Sander: Kerrie Rosa Appended by Kerrie Rosa on 08/11/2019 9:52 CDT: PATIENT WILL RETURN TO BACKGROUND INVESTIGATOR MEDICAID BED WHERE SHE IS A RESIDENT AT [facility]. THE [facility] WILL PICK HER UP IN ABOUT AT HOUR. CM TO FOLLOW . Last DP export: 08/11/19 8:53 a Patient Name: GARY CABRERA Page [id number] at 1352 All edits/amendments must be made on the electronic document DICTATION DATE: 08/11/19 1351 SR. DIRECTOR: YOVANI 08/11/19 1351 RPT#: [id number] DC DATE:08/11/19 STATUS: DIS IN [facility] [address] [place] [address] END OF REPORT
== END 2019-08-11 12:15 | DRG 194 ==
LOC: D.ER 19:09 → D.M3 20:32
PROVIDERS: Family Medicine; ADMIT Family Medicine; ATTEND Family Medicine
DX: J18.9 Pneumonia, unspecified organism (principal); N17.9 Acute kidney failure, unspecified; D64.9 Anemia, unspecified; Z86.73 Personal history of transient ischemic attack (TIA), and cerebral infarction without residual deficits; G40.909 Epilepsy, unspecified, not intractable, without status epilepticus; I10 Essential (primary) hypertension